=== PATIENT | female | born 1985 | race Two or more races ===

== ENCOUNTER 2020-02-09 19:51 | Emergency (ER) | payer SELFPAY ==
[~2020-02-09] VITALS: Ht 157.5 cm; Wt 68.1 kg
[~2020-02-09 19:51] MED LIST: DOCU-109 PO; FERR325T72 PO; IBUP-1027 PO; OXYC1TAB15 PO
[2020-02-09] MEDS ORDERED: IV NORMAL SALINE 1000ML BAG 1,000 ML IV SCH (20:33)
[2020-02-09 20:53] LABS: BASO % 0 % (0-3); EOS % 0 % (0-3); HEMATOCRIT 44.9 % (36.0-47.0); HEMOGLOBIN 15.3 g/dL (12.0-15.5); LYMPH # 1.4 x10^3/uL (1.0-4.8); LYMPH % 30 % (24-48); MEAN CORPUSCULAR HEMOGLOBIN 31 pg (25-35); MEAN CORPUSCULAR HGB CONC 34 g/dL (31-37); MEAN CORPUSCULAR VOLUME 90 fL (79-100); MONO # 0.7 x10^3/uL (0.0-1.1); MONO % 16 % (0-9); NEUT # 2.5 x10^3/uL (1.8-7.7); NEUT % 54 % (31-73); PLATELET COUNT 246 x10^3/uL (140-400); RED BLOOD COUNT 5.02 x10^6/uL (3.50-5.40); RED CELL DISTRIBUTION WIDTH 12.8 % (11.5-14.5); WHITE BLOOD COUNT 4.7 x10^3/uL (4.0-11.0)
[2020-02-09] MEDS: MORPHINE SULFATE 2 MG/ML VIAL. IV/SQ PRN ×2 (20:58→21:50)
[2020-02-09 21:01] LABS: CALCIUM 10.1 mg/dL (8.5-10.1); CREATININE 0.9 mg/dL (0.6-1.0); GFR 71.3; POTASSIUM 3.1 mmol/L (3.5-5.1)
[2020-02-09 21:03] LABS: PROTHROMBIN TIME PATIENT 12.4 SEC (11.7-14.0)
[2020-02-09 21:07] LABS: ALBUMIN 3.9 g/dL (3.4-5.0); MAGNESIUM 1.7 mg/dL (1.8-2.4); TOTAL BILIRUBIN 0.3 mg/dL (0.2-1.0); TOTAL PROTEIN 7.7 g/dL (6.4-8.2)
[2020-02-09 21:08] LABS: BILIRUBIN,URINE NEGATIVE (NEG); CLARITY,URINE HAZY; COLOR,URINE YELLOW
[2020-02-09 21:09] LABS: BACTERIA,URINE MANY /HPF (0-FEW); NITRITE,URINE POSITIVE (NEG); PROTEIN,URINE 100 mg/dL (NEG-TRACE); SQUAMOUS EPITHELIAL CELL,UR MOD /LPF; UROBILINOGEN,URINE 0.2 mg/dL (0.2 mg/dL); WBC,URINE >40 /HPF (0-4)
[2020-02-09 21:10] LABS: RBC,URINE OCC /HPF (0-2)
--- NOTE | 2020-02-09 21:31 | PHYS DOC ---
Past Medical History Past Medical History: No Pertinent History Past Surgical History: Cholecystectomy, Smoking Status: Never Smoker Alcohol Use: None General Adult EDM: Chief Complaint: VAGINAL BLEEDING HPI: HPI: Patient is a 34 year old female who presents with report of and being told about 2 months ago that her was nonviable. Since that time, she has had no vaginal bleeding but has had back pain as well as pelvic pain that is progressively getting worse. Patient has also started to run a fever over the last few days. Patient has had no vomiting or diarrhea but has been nauseated. She denies any chest pain or shortness of breath. [] Review of Systems: Review of Systems: Constitutional: Denies fever or chills. [] Respiratory: Denies cough or shortness of breath. [] Cardiovascular: Denies chest pain or edema. [] GI: Complains of lower abdominal pain without vomiting or diarrhea. [] : Denies dysuria. [] Musculoskeletal: Complains of lower back pain. [] Integument: Denies rash. [] Neurologic: Denies headache, focal weakness or sensory changes. [] A full 10 point review of systems has been reviewed and is otherwise negative. Heart Score: Risk Factors: Risk Factors: DM, Current or recent (<one month) smoker, HTN, HLP, family history of CAD, obesity. Risk Scores: Score 0 - 3: 2.5% MACE over next 6 weeks - Discharge Home Score 4 - 6: 20.3% MACE over next 6 weeks - Admit for Clinical Observation Score 7 - 10: 72.7% MACE over next 6 weeks - Early Invasive Strategies Current Medications: Current Medications Medications (Trade) Dose Ordered Sig/Jailene Start Time Stop Time Status Last Admin Dose Admin Morphine Sulfate (Morphine Sulfate) 2 mg PRN Q15MIN PRN 02/09/20 20:45 02/10/20 20:44 02/09/20 20:58 2 MG Sodium Chloride 1,000 ml @ 1,000 mls/hr Q1H 02/09/20 20:33 02/09/20 21:32 02/09/20 20:55 1,000 MLS/HR Allergies: Allergies: Allergies Coded Allergies Type Severity Reaction Last Updated Verified No Known Drug Allergies 11/18/18 No Physical Exam: PE: Constitutional: Well developed, well nourished, no acute distress, non-toxic appearance. [] HENT: Normocephalic, atraumatic, bilateral external ears normal, oropharynx moist, no oral exudates, nose normal. [] Eyes: PERRLA, EOMI, conjunctiva normal, no discharge. [] Neck: Normal range of motion, no tenderness, supple, no stridor. [] Cardiovascular: Regular rate and rhythm [] Lungs & Thorax: Bilateral breath sounds clear to auscultation [] Abdomen: Bowel sounds normal, soft, with mild suprapubic tenderness. [] Skin: Warm, dry, no erythema, no rash. [] Extremities: No tenderness, no cyanosis, no clubbing, ROM intact. [] Neurologic: Alert and oriented X 3, no focal deficits noted. [] Current Patient Data: Labs: Laboratory Tests Test 02/09/20 20:15 02/09/20 20:22 02/09/20 20:30 Urine Collection Type Unknown Urine Color Yellow Urine Clarity Hazy Urine pH 6.0 (<5.0-8.0) Urine Specific Flushing 1.020 (1.000-1.030) Urine Protein 100 mg/dL (NEG-TRACE) Urine Glucose (UA) Negative mg/dL (NEG) Urine Ketones (Stick) 15 mg/dL (NEG) Urine Blood Trace (NEG) Urine Nitrite Positive (NEG) Urine Bilirubin Negative (NEG) Urine Urobilinogen Dipstick 0.2 mg/dL (0.2 mg/dL) Urine Leukocyte Esterase Small (NEG) Urine RBC Occ /HPF (0-2) Urine WBC >40 /HPF (0-4) Urine Squamous Epithelial Cells Mod /LPF Urine Bacteria Many /HPF (0-FEW) POC Urine HCG, Qualitative Hcg positive (Negative) White Blood Count 4.7 x10^3/uL (4.0-11.0) Red Blood Count 5.02 x10^6/uL (3.50-5.40) Hemoglobin 15.3 g/dL (12.0-15.5) Hematocrit 44.9 % (36.0-47.0) Mean Corpuscular Volume 90 fL (79-100) Mean Corpuscular Hemoglobin 31 pg (25-35) Mean Corpuscular Hemoglobin Concent 34 g/dL (31-37) Red Cell Distribution Width 12.8 % (11.5-14.5) Platelet Count 246 x10^3/uL (140-400) Neutrophils (%) (Auto) 54 % (31-73) Lymphocytes (%) (Auto) 30 % (24-48) Monocytes (%) (Auto) 16 % (0-9) H Eosinophils (%) (Auto) 0 % (0-3) Basophils (%) (Auto) 0 % (0-3) Neutrophils # (Auto) 2.5 x10^3/uL (1.8-7.7) Lymphocytes # (Auto) 1.4 x10^3/uL (1.0-4.8) Monocytes # (Auto) 0.7 x10^3/uL (0.0-1.1) Eosinophils # (Auto) 0.0 x10^3/uL (0.0-0.7) Basophils # (Auto) 0.0 x10^3/uL (0.0-0.2) Prothrombin Time 12.4 SEC (11.7-14.0) Prothrombin Time INR 1.0 (0.8-1.1) Sodium Level 136 mmol/L (136-145) Potassium Level 3.1 mmol/L (3.5-5.1) L Chloride Level 98 mmol/L (98-107) Carbon Dioxide Level 28 mmol/L (21-32) Anion Gap 10 (6-14) Blood Urea Nitrogen 13 mg/dL (7-20) Creatinine 0.9 mg/dL (0.6-1.0) Estimated GFR (Cockcroft-Gault) 71.3 BUN/Creatinine Ratio 14 (6-20) Glucose Level 84 mg/dL (70-99) Calcium Level 10.1 mg/dL (8.5-10.1) Magnesium Level 1.7 mg/dL (1.8-2.4) L Total Bilirubin 0.3 mg/dL (0.2-1.0) Aspartate Amino Transferase (AST) 24 U/L (15-37) Alanine Aminotransferase (ALT) 18 U/L (14-59) Alkaline Phosphatase 84 U/L (46-116) Total Protein 7.7 g/dL (6.4-8.2) Albumin 3.9 g/dL (3.4-5.0) Albumin/Globulin Ratio 1.0 (1.0-1.7) Laboratory Tests 02/09/20 20:30 Laboratory Tests 02/09/20 20:30 Vital Signs: Vital Signs Date Time Temp Pulse Resp B/P (MAP) Pulse Ox O2 Delivery O2 Flow Rate FiO2 02/09/20 20:58 21 100 Room Air 02/09/20 20:00 98.4 103 119/76 (90) 98.4 EKG: EKG: [] Radiology/Procedures: Radiology/Procedures: [] Impression: PROCEDURE: OB <14 WKS W/TV EXAM: OBSTETRIC ULTRASOUND, <14 WEEKS. HISTORY: Fever and back pain, nonviable . COMPARISON: None. FINDINGS: Sonographic evaluation of the pelvis was performed transabdominally and transvaginally. The uterus is anteverted and measures 12.6 x 9.2 x 7.6 cm. A large gestational sac contains a small pole measuring 7 weeks 6 days based on crown-rump length 1.5 cm. There is no heart motion. A yolk sac is not visualized. There is no clear subchorionic collection. The cervix contains a small amount of fluid but remains closed. The right ovary is not visualized currently. A tubular structure in the right adnexal region most likely represents bowel loops though a hydrosalpinx cannot be excluded. The left ovary measures 3.3 x 1.6 x 1.3 cm. There is normal Doppler flow on the left. There is no adnexal mass. There is no significant free fluid. IMPRESSION: 1. Nonviable with a large gestational sac, a small pole and no heart tones. Ongoing management is recommended. 2. The right ovary is not visualized currently. It may be obscured by adjacent bowel loops versus a right hydrosalpinx. Electronically signed by: Josse Iverson MD (02/09/2020 10:39 PM) [facility] Course & Med Decision Making: Course & Med Decision Making Pertinent Labs and Imaging studies reviewed. (See chart for details) [] Dragon Disclaimer: Dragon Disclaimer: This electronic medical record was generated, in whole or in part, using a voice recognition dictation system. Departure Departure Impression: Primary Impression: Incomplete miscarriage Disposition: HOME, SELF-CARE Condition: STABLE Referrals: NO PCP (PCP) HARSH ADEN MD Patient Instructions: Incomplete Miscarriage Additional Instructions: Call to schedule follow-up appointment with Dr. Aden on Tiago morning. Scripts Ondansetron (ONDANSETRON ODT) 4 Mg Tab.rapdis 1 TAB PO PRN Q6-8HRS PRN for NAUSEA, #15 TAB Prov: ARCHANA MORALES Jr. DO 02/09/20 Hydrocodone/Apap 5-325 (NORCO 5-325 TABLET) 1 Each Tablet 1-2 EACH PO PRN Q6HRS PRN for PAIN, #20 TAB as needed for pain Prov: ARCHANA MORALES Jr. DO 02/09/20 ARCHANA MORALES Jr. DO February 09, 2020 21:31
[2020-02-09] MEDS ORDERED: cefTRIAXone IV Push 1 GM VIAL. IVP ONE (22:30)
[2020-02-09] MEDS ORDERED: ONDANSETRON PF 4 MG/2 ML VIAL. IVP ONE (22:30)
--- NOTE | 2020-02-09 22:41 | RAD ---
EXAM: OBSTETRIC ULTRASOUND, <14 WEEKS. HISTORY: Fever and back pain, nonviable . COMPARISON: None. FINDINGS: Sonographic evaluation of the pelvis was performed transabdominally and transvaginally. The uterus is anteverted and measures 12.6 x 9.2 x 7.6 cm. A large gestational sac contains a small pole measuring 7 weeks 6 days based on crown-rump length 1.5 cm. There is no heart motion. A yolk sac is not visualized. There is no clear subchorionic collection. The cervix contains a small amount of fluid but remains closed. The right ovary is not visualized currently. A tubular structure in the right adnexal region most likely represents bowel loops though a hydrosalpinx cannot be excluded. The left ovary measures 3.3 x 1.6 x 1.3 cm. There is normal Doppler flow on the left. There is no adnexal mass. There is no significant free fluid. IMPRESSION: 1. Nonviable with a large gestational sac, a small pole and no heart tones. Ongoing management is recommended. 2. The right ovary is not visualized currently. It may be obscured by adjacent bowel loops versus a right hydrosalpinx. Electronically signed by: Josse Iverson MD (02/09/2020 10:39 PM) [facility]
[2020-02-09] MEDS ORDERED: fentaNYL PF VIAL 100 MCG/2 ML VIAL IVP ONE (23:00)
[2020-02-09] MEDS ORDERED: ONDA4TAB12 PO (23:19)
[2020-02-09] MEDS ORDERED: HYDR-3164 PO (23:19)
[2020-02-09 23:27] VITALS: BP 95/57
== END 2020-02-09 23:43 ==
LOC: ER 19:51
DX: O03.4 Incomplete spontaneous abortion without complication (principal)
CPT/HCPCS: 36415; 76801; 76817; 80053; 81001; 81025; 83735; 85025; 85610; 87086; 96374; 96375; 96376; 99285; J0696; J2270; J2405; J3010; J7030